=== PATIENT | female | born 1990 | race Caucasian/White ===

== ENCOUNTER → 2018-03-21 12:19 | Outpatient (CLI) | payer OTHER, MEDICAID, SELFPAY ==
[2018-03-21 12:36] LABS: RBC Urine None Seen (0-5/HPF)
[2018-03-21 13:14] LABS: Hematocrit 35.6 % (36-46); Hemoglobin 12.3 g/dL (12.0-16.0); Mean Corpuscular HGB Conc 34.6 % (30-36); Mean Corpuscular Hemoglobin 31.2 PG (26-34); Mean Corpuscular Volume 90.1 fL (80-100); Platelet Count 258 X10^3/uL (150-400); Red Blood Cell Count 3.95 X10^6/uL (4.0-5.2); Red Cell Distribution Width 12.8 % (11.6-14.8); White Blood Cell Count 5.7 X10^3/uL (4.5-11.0)
[2018-03-21 13:29] LABS: Appearance Urine UA CLEAR; Bilirubin Urine UA NEGATIVE (NEGATIVE); Color Urine UA YELLOW; Glucose Urine UA NEGATIVE (Negative); Ketones Urine UA NEGATIVE (NEGATIVE); Leukocyte Esterase Urine UA 1+ (NEGATIVE); Nitrite Urine UA NEGATIVE (Negative); Occult Blood Urine UA NEGATIVE (Negative); Protein Urine UA NEGATIVE (Negative); Urobilinogen Urine UA 0.2 E.U./dL (0.2); pH Urine UA 7.5 (4.5-8.0)
[2018-03-21 13:35] LABS: Bacteria Urine Moderate (10-30); Culture Indicated Urine Specimen Cultured; Squamous Epithelial Cell Urine 1-5 /HPF; WBC Urine 1-5/HPF (0-5/HPF)
[2018-03-21 15:00] LABS: Urine N gonorrhoeae NOT DETECTED
[2018-03-21 15:23] LABS: Urine Chlamydia NOT DETECTED
[2018-03-21 16:56] LABS: HIV 1 and 2 Antibody NEGATIVE (NEGATIVE); Hepatitis B Surface Antigen NEGATIVE s/c (NEGATIVE); Rubella Antibody IgG 19.1 IU/mL (>15)
[2018-03-25 22:29] LABS: RPR Screen Nonreactive (Nonreactive)
== END ==
PROVIDERS: PCP Nurse Practitioner Obstetrics & Gynecology; Visit Provider Nurse Practitioner Obstetrics & Gynecology
DX: Z34.01 Encounter for supervision of normal first pregnancy, first trimester (principal)
CPT/HCPCS: 36415; 81001; 85027; 86592; 86703; 86762; 86900; 86901; 87086; 87340; 87491; 87591

== ENCOUNTER → 2018-04-05 10:52 | Outpatient (CLI) | payer OTHER, MEDICAID, SELFPAY ==
--- NOTE | 2018-04-05 | DI.US.S_ITS ---
ULTRASOUND OF RIGHT BREAST: 04/05/2018 CLINICAL: RIGHT BREAST LUMP. No prior exams were available for comparison. Real-time ultrasound of the right breast was performed on the areas of interest. Sunshine scale images of the real-time examination were reviewed. IMPRESSION: NEGATIVE There is no sonographic evidence of malignancy. There is no sonographic abnormality seen in the right breast to correspond with the palpable abnormality, however, clinical followup is recommended. Return to annual mammogram screening schedule at 40 is recommended. This exam was interpreted at Station ID: [id number]. Electronically Signed By: Juanis lang/:04/05/2018 17:15:10 letter sent: Clinical Evaluation Ultrasound BI-RADS: 1 Negative
== END ==
PROVIDERS: PCP Nurse Practitioner Obstetrics & Gynecology; Visit Provider Nurse Practitioner Obstetrics & Gynecology
DX: N63.10 Unspecified lump in the right breast, unspecified quadrant (principal)
CPT/HCPCS: 76642

== ENCOUNTER → 2018-06-07 09:55 | Outpatient (CLI) | payer OTHER, MEDICAID, SELFPAY ==
--- NOTE | 2018-06-07 | DI.US.S_ITS ---
PROCEDURE: US OB >= 14 WEEKS FETUS INDICATIONS: ANATOMY SCAN OUTSIDE/PRIOR DATING DATA: Last menstrual period (LMP): 01/09/18. LMP-based estimated date of delivery (IESHA): 10/16/18. First dating scan (date and location): 06/07/18. Estimated date of delivery (IESHA) from first dating scan: 10/16/18. TECHNIQUE: Real-time scanning was performed of the fetus, with image documentation and biometric measurements. Endovaginal scanning: No COMPARISON: None. FINDINGS: General: A single living intrauterine gestation is present. Presentation: Transverse with the head to the maternal left.. Placenta: Placental position is anterior, without previa. Amniotic fluid index: 13.4 cm, normal range is 5-24 cm. heart rate: 133 beats per minute. Maternal cervical canal: 3.2 cm long. Normal lower limit is 2.5 cm. biometrics: Biparietal diameter: 21 weeks 1 day Head circumference: 21 weeks 2 days Abdominal circumference: 21 weeks 4 days Femur length: 21 weeks 1 day Estimated gestational age from initial scan: not applicable. Composite gestational age from present scan: 21 weeks 2 days Estimated weight and percentile: 416 g; 47 percentile based on LMP. Measurement variability for biometric dating: +/- 7 days from 14 weeks to 15 weeks 6 days gestation, +/- 10 days from 16 weeks to 21 weeks 6 days gestation, +/- 2 weeks from 22 weeks to 27 weeks 6 days gestation, +/- 3 weeks for 28 weeks gestation or later. weight reference: 4500 g or EFW >90/95% is considered macrosomia or large for gestational age. EFW <10% is small for gestational age. EFW 5% or less is considered intra-uterine growth restriction. Anatomic survey: Neuro: Ventricles are non-dilated at less than 10 mm. Cisterna magna is normal at 3-11 mm. Cerebellum is normal in size and morphology. Nuchal skin fold: Normal at less than 6 mm between 14-21 weeks gestational age. Face: Nose and lips, facial profile are normal. Spine: No evidence for spina bifida. Heart: heart suboccipital visualized and possibly a small VSD is noted by the dice dealer. Diaphragm: Diaphragm is intact. Stomach: Left-sided stomach is present. Kidneys: No hydronephrosis. Normal is less than 5 mm in 2nd trimester, less than 7 mm in 3rd trimester. Cord: 3-vessel cord has orthotopic insertion. Bladder: Normal in size. Extremities: All 4 extremities identified. IMPRESSION: 21 week 2 day single living IUP. heart not well visualized and VSD cannot be excluded on the basis of this examination. Short-term followup ultrasound is recommended. Dictated by: Giovanni FLORIAN Interpreted: Bridgette Mora MD on 06/07/2018 at 13:00 Approved by: Bridgette Mora M.D. on 06/07/2018 at 16:59
== END ==
PROVIDERS: PCP Nurse Practitioner Obstetrics & Gynecology; Visit Provider Nurse Practitioner Obstetrics & Gynecology
DX: Z36.89 Encounter for other specified antenatal screening (principal); Z3A.21 21 weeks gestation of pregnancy
CPT/HCPCS: 76811

== ENCOUNTER → 2018-07-18 07:45 | Outpatient (CLI) | payer OTHER, MEDICAID, SELFPAY ==
[2018-07-18 08:52] LABS: Hematocrit 32.7 % (36-46); Mean Corpuscular HGB Conc 33.7 % (30-36); Mean Corpuscular Hemoglobin 30.6 PG (26-34); Mean Corpuscular Volume 90.8 fL (80-100); Platelet Count 301 X10^3/uL (150-400); Red Blood Cell Count 3.61 X10^6/uL (4.0-5.2); White Blood Cell Count 7.2 X10^3/uL (4.5-11.0)
[2018-07-18 09:12] LABS: Glucose Fasting 67 mg/dL (70-100)
[2018-07-18 10:35] LABS: Glucose Tol Interpretation INTERPRETATION
[2018-07-18 10:50] LABS: Glucose 1 Hour 103 mg/dL (70-170)
[2018-07-18 11:31] LABS: Glucose 2 Hour 84 mg/dL (70-140)
== END ==
PROVIDERS: PCP Nurse Practitioner Obstetrics & Gynecology; Visit Provider Nurse Practitioner Obstetrics & Gynecology
DX: Z34.92 Encounter for supervision of normal pregnancy, unspecified, second trimester (principal); Z3A.24 24 weeks gestation of pregnancy
CPT/HCPCS: 36415; 82951; 82952; 85027; 86850

== ENCOUNTER → 2018-09-20 12:48 | Outpatient (ROUT) | payer OTHER, MEDICAID, SELFPAY | PROVIDERS: PCP Nurse Practitioner Obstetrics & Gynecology; Visit Provider Nurse Practitioner Obstetrics & Gynecology | DX: Z34.83 Encounter for supervision of other normal pregnancy, third trimester (principal) | CPT/HCPCS: 87081 ==

== ENCOUNTER 2018-10-15 07:30 | Observation (INO) | payer OTHER, MEDICAID, SELFPAY ==
--- NOTE | 2018-10-15 08:14 | PM.OBTRLD ---
[facility] Medical History (Updated 10/15/18 @ 08:19 by Judy Villa CNM) Anxiety, generalized (Acute) Depressive disorder (Acute) Former smoker (Acute) History of alcohol abuse (Acute) PROM (premature rupture of membranes) (Acute) Surgical History (Updated 10/15/18 @ 08:19 by Judy Villa CNM) Hx of knee surgery (Acute) Social History (Updated 10/15/18 @ 08:21 by Judy Villa CNM) marital status: unmarried,living together details: Partner Rui lives independently: Yes caregiver/support person: No housing: house pets and animals: Yes occupational status: employed current occupational exposures/hazards: No special neda needs: No Smoking Status: Former smoker alcohol intake: former substance use type: does not use during the past year weight has: other well-balanced diet: daily or most days daily servings fruits/ve or more times/day Type(s) of exercise: walking frequency: 3-4 times per week Social History (Updated 10/15/18 @ 08:21 by Judy Villa CNM) marital status: unmarried,living together details: Partner Rui lives independently: Yes caregiver/support person: No housing: house pets and animals: Yes occupational status: employed current occupational exposures/hazards: No special neda needs: No Smoking Status: Former smoker alcohol intake: former substance use type: does not use during the past year weight has: other well-balanced diet: daily or most days daily servings fruits/ve or more times/day Type(s) of exercise: walking frequency: 3-4 times per week Review of Systems Review of Systems All systems reviewed & are unremarkable except as noted in HPI and below Exam Vital Signs (past 8 hours): BP 116/84, HR 79, T 97.6F Narrative Exam Narrative: 28YO @ [id number] by LMP and early US presents for evaluation of PROM. Awoke to a gush of fluid at 0400 and has noted clear fluid intermittently leaking since. Feeling mild, irregular contractions. +FM. Has noted small spotting w/ mucus discharge. Uncomplicated PN care w/ CNM. Desires low intervention . FOB present and supportive. O: VSS. FHR baseline 140bpm, moderate varaibility, accels present, decels absent. Ctx Q 3.5-4 minutes, lasting 80-120 seconds, mild. CE deferred. Grossly ruptured, clear fluid noted on clothes and peripad. A: Term primipara PROM Reactive TREE MARKER Evaluation Evaluation Baseline heart rate: 140 Variability: Moderate (11-25) monitor accelerations: Present monitor decelerations: Absent Contraction Frequency (minutes): 3 Uterine Contraction Intensity: Mild Category of Tracing: I Diagnosis, Plan/Disposition Plan/Disposition Plan: Counseled patient on options for active vs expectant management of PROM. Pt declines intervention at this time, strongly desires no intervention. Reviewed labor sx, warning sx and when to call. Pt to return no later than 4pm for labor admission, pt verbalized agreement. OB Disposition: home
--- NOTE | 2018-10-15 08:21 | P.TNLD_ITS ---
[facility] Medical History (Updated 10/15/18 @ 08:19 by Judy Villa CNM) Anxiety, generalized (Acute) Depressive disorder (Acute) Former smoker (Acute) History of alcohol abuse (Acute) PROM (premature rupture of membranes) (Acute) Surgical History (Updated 10/15/18 @ 08:19 by Judy Villa CNM) Hx of knee surgery (Acute) Social History (Updated 10/15/18 @ 08:21 by Judy Villa CNM) marital status: unmarried,living together details: Partner Rui lives independently: Yes caregiver/support person: No housing: house pets and animals: Yes occupational status: employed current occupational exposures/hazards: No special neda needs: No Smoking Status: Former smoker alcohol intake: former substance use type: does not use during the past year weight has: other well-balanced diet: daily or most days daily servings fruits/ve or more times/day Type(s) of exercise: walking frequency: 3-4 times per week Social History (Updated 10/15/18 @ 08:21 by Judy Villa CNM) marital status: unmarried,living together details: Partner Rui lives independently: Yes caregiver/support person: No housing: house pets and animals: Yes occupational status: employed current occupational exposures/hazards: No special neda needs: No Smoking Status: Former smoker alcohol intake: former substance use type: does not use during the past year weight has: other well-balanced diet: daily or most days daily servings fruits/ve or more times/day Type(s) of exercise: walking frequency: 3-4 times per week Review of Systems Review of Systems All systems reviewed & are unremarkable except as noted in HPI and below Exam Vital Signs (past 8 hours): BP 116/84, HR 79, T 97.6F Narrative Exam Narrative: 28YO @ [id number] by LMP and early US presents for evaluation of PROM. Awoke to a gush of fluid at 0400 and has noted clear fluid intermittently leaking since. Feeling mild, irregular contractions. +FM. Has noted small spotting w/ mucus discharge. Uncomplicated PN care w/ CNM. Desires low intervention . FOB present and supportive. O: VSS. FHR baseline 140bpm, moderate varaibility, accels present, decels absent. Ctx Q 3.5-4 minutes, lasting 80-120 seconds, mild. CE deferred. Grossly ruptured, clear fluid noted on clothes and peripad. A: Term primipara PROM Reactive INFORMATION SECURITY ARCHITECT Evaluation Evaluation Baseline heart rate: 140 Variability: Moderate (11-25) monitor accelerations: Present monitor decelerations: Absent Contraction Frequency (minutes): 3 Uterine Contraction Intensity: Mild Category of Tracing: I Diagnosis, Plan/Disposition Plan/Disposition Plan: Counseled patient on options for active vs expectant management of PROM. Pt declines intervention at this time, strongly desires no intervention. Reviewed labor sx, warning sx and when to call. Pt to return no later than 4pm for labor admission, pt verbalized agreement. OB Disposition: home
== END 2018-10-15 08:20 | disposition home or self-care (01) ==
PROVIDERS: Admitting Provider Nurse Practitioner Obstetrics & Gynecology; PCP Nurse Practitioner Obstetrics & Gynecology; Visit Provider Nurse Practitioner Obstetrics & Gynecology
DX: O42.92 Full-term premature rupture of membranes, unspecified as to length of time between rupture and onset of labor (principal); Z3A.39 39 weeks gestation of pregnancy
CPT/HCPCS: 59025; G0378; G0379

== ENCOUNTER 2018-10-15 11:43 | Inpatient (IN) | payer OTHER, MEDICAID, SELFPAY ==
--- NOTE | 2018-10-15 12:21 | PM.OBHP.1 ---
OB HPI History of Present Condition Chief complaint: Evaluation for Labor Narrative: Doris Mcarthur is a 28 year old female, @ [id number] by LMP and 10 wk US, presents for admission s/p PROM, clear fluid at 0400. Ctx have slowly progressed in frequency and intensity since yesterday, now Q2-5 minutes, lasting at least a minute. Breathing through most contractions. Uncomplicated PN care w/ CNM. Desires low intervention . FOB, Rui, present and supportive. [facility] Medical History Anxiety, generalized (Acute) Depressive disorder (Acute) Former smoker (Acute) History of alcohol abuse (Acute) PROM (premature rupture of membranes) (Acute) Surgical History Hx of knee surgery (Acute) Social History (Updated 10/15/18 @ 08:21 by Judy Villa CNM) marital status: unmarried,living together details: Partner Rui lives independently: Yes caregiver/support person: No housing: house pets and animals: Yes occupational status: employed current occupational exposures/hazards: No special neda needs: No Smoking Status: Former smoker alcohol intake: former substance use type: does not use during the past year weight has: other well-balanced diet: daily or most days daily servings fruits/ve or more times/day Type(s) of exercise: walking frequency: 3-4 times per week Social History marital status: unmarried,living together details: Partner Rui lives independently: Yes caregiver/support person: No housing: house pets and animals: Yes occupational status: employed current occupational exposures/hazards: No special neda needs: No Smoking Status: Former smoker alcohol intake: former substance use type: does not use during the past year weight has: other well-balanced diet: daily or most days daily servings fruits/ve or more times/day Type(s) of exercise: walking frequency: 3-4 times per week Meds Home Medications Medication Instructions Recorded Confirmed Type ferrous sulfate 325 mg PO DAILY 10/15/18 10/15/18 History no.144-folic acid 2 tab PO DAILY 10/15/18 10/15/18 History [] Allergies Allergy/AdvReac Type Severity Reaction Status Date / Time diphenhydramine Allergy Intermediate throat Verified 10/15/18 12:28 swelling Review of Systems Review of Systems All systems reviewed & are unremarkable except as noted in HPI and below Exam Vital Signs (past 8 hours): VSS, see Obix flowsheet Narrative Exam Narrative: FHR baseline 130bpm, moderate variability, accels present, decels absent. Ctx Q 2-5minutes, lasting 80-120 seconds, moderate. CE deferred. Resp Effort & Inspection: normal respiratory effort Auscultation: clear to auscultation bilaterally Cardio Rate: regular rate Rhythm: regular rhythm Heart Sounds: S1 normal and S2 normal GI Palpation: soft Other: gravid, nontender Psych Appearance: grossly normal Mental Status: mental status grossly normal Speech and Movement: speech and movement normal Mood: congruent mood Affect: normal affect Attitude: cooperative Thought Process: normal Other: stable without medication Objective Labs Labs: ABO/Rh- A positive, AB screen-negative, HIV neg, GC/CT-neg/neg, HepBsAg-negative, Rubella-immune; 07/18/18: Hgb-11, Hct-32.7, Plt-301, 2hr gtt-WNL/67/103/84; 09/20/18: GBS-neg Assessment and Plan Assessment and Plan Assessment and Plan narrative: Term pirmipara SROM x8 hours without sx of infection Suspect active labor No indication for GBS prophylaxis Cat I FHR P: Admit w/ routine orders :SL IV, CBC, T&S. Labor support PRN. May switch to IA if patient desires. Reassess in 4 hours or sooner, PRN.
--- NOTE | 2018-10-15 12:32 | P.HPOB_ITS ---
OB HPI History of Present Condition Chief complaint: Evaluation for Labor Narrative: Doris Mcarthur is a 28 year old female, @ [id number] by LMP and 10 wk US, presents for admission s/p PROM, clear fluid at 0400. Ctx have slowly progressed in frequency and intensity since yesterday, now Q2-5 minutes, lasting at least a minute. Breathing through most contractions. Uncomplicated PN care w/ CNM. Desires low intervention . FOB, Rui, present and supportive. [facility] Medical History Anxiety, generalized (Acute) Depressive disorder (Acute) Former smoker (Acute) History of alcohol abuse (Acute) PROM (premature rupture of membranes) (Acute) Surgical History Hx of knee surgery (Acute) Social History (Updated 10/15/18 @ 08:21 by Judy Villa CNM) marital status: unmarried,living together details: Partner Rui lives independently: Yes caregiver/support person: No housing: house pets and animals: Yes occupational status: employed current occupational exposures/hazards: No special neda needs: No Smoking Status: Former smoker alcohol intake: former substance use type: does not use during the past year weight has: other well-balanced diet: daily or most days daily servings fruits/ve or more times/day Type(s) of exercise: walking frequency: 3-4 times per week Social History marital status: unmarried,living together details: Partner Rui lives independently: Yes caregiver/support person: No housing: house pets and animals: Yes occupational status: employed current occupational exposures/hazards: No special neda needs: No Smoking Status: Former smoker alcohol intake: former substance use type: does not use during the past year weight has: other well-balanced diet: daily or most days daily servings fruits/ve or more times/day Type(s) of exercise: walking frequency: 3-4 times per week Meds Home Medications Medication Instructions Recorded Confirmed Type ferrous sulfate 325 mg PO DAILY 10/15/18 10/15/18 History no.144-folic acid 2 tab PO DAILY 10/15/18 10/15/18 History [] Allergies Allergy/AdvReac Type Severity Reaction Status Date / Time diphenhydramine Allergy Intermediate throat Verified 10/15/18 12:28 swelling Review of Systems Review of Systems All systems reviewed & are unremarkable except as noted in HPI and below Exam Vital Signs (past 8 hours): VSS, see Obix flowsheet Narrative Exam Narrative: FHR baseline 130bpm, moderate variability, accels present, decels absent. Ctx Q 2-5minutes, lasting 80-120 seconds, moderate. CE deferred. Resp Effort & Inspection: normal respiratory effort Auscultation: clear to auscultation bilaterally Cardio Rate: regular rate Rhythm: regular rhythm Heart Sounds: S1 normal and S2 normal GI Palpation: soft Other: gravid, nontender Psych Appearance: grossly normal Mental Status: mental status grossly normal Speech and Movement: speech and movement normal Mood: congruent mood Affect: normal affect Attitude: cooperative Thought Process: normal Other: stable without medication Objective Labs Labs: ABO/Rh- A positive, AB screen-negative, HIV neg, GC/CT-neg/neg, HepBsAg- negative, Rubella-immune; 07/18/18: Hgb-11, Hct-32.7, Plt-301, 2hr gtt- WNL/67/103/84; 09/20/18: GBS-neg Assessment and Plan Assessment and Plan Assessment and Plan narrative: Term pirmipara SROM x8 hours without sx of infection Suspect active labor No indication for GBS prophylaxis Cat I FHR P: Admit w/ routine orders :SL IV, CBC, T&S. Labor support PRN. May switch to IA if patient desires. Reassess in 4 hours or sooner, PRN.
[2018-10-15 13:05] LABS: Add Manual Diff / Slide Review NO; Basophils Absolute Auto 100 /uL (0-100); Basophils Percent Auto 0.8 % (0-2); Eosinophils Absolute Auto 0 /uL (0-450); Eosinophils Percent Auto 0.5 % (2-4); Hematocrit 32.4 % (36-46); Hemoglobin 11.1 g/dL (12.0-16.0); Lymphocytes Absolute Auto 1800 /uL (1100-4500); Lymphocytes Percent Auto 19.6 % (25-40); Mean Corpuscular HGB Conc 34.2 % (30-36); Mean Corpuscular Hemoglobin 29.6 PG (26-34); Mean Corpuscular Volume 86.6 fL (80-100); Monocytes Absolute Auto 1000 /uL (0-900); Monocytes Percent Auto 10.7 % (3-14); Neutrophils Absolute Auto 6400 /uL (1500-7000); Neutrophils Percent Auto 68.4 % (50-75); Platelet Count 271 X10^3/uL (150-400); Red Blood Cell Count 3.75 X10^6/uL (4.0-5.2); Red Cell Distribution Width 13.8 % (11.6-14.8); White Blood Cell Count 9.3 X10^3/uL (4.5-11.0)
--- NOTE | 2018-10-15 16:18 | PM.OBPNLAB ---
Date/Time Date Patient Seen: 10/15/18 Time Patient Seen: 16:19 Pain Control Pain control: tolerating well Comments: coping well with continuous support Pelvic Exam Dilation (cm): 7 Effacement (%): 90 station: 0 Amniotic membrane status: Leaking Comments: clear Contractions Date/Time contractions began: 829 Contractions on admission: regular Monitor mode: External Contraction frequency (min): 4 Contraction duration (min): 100 Contraction pattern: Regular Contraction phase: Contraction Contraction intensity: Strong/Firm Status status: Category l Heart Rate Baseline: 125 Monitor Accelerations: Present Monitor Decelerations: Absent Monitor Variability: Moderate Assessment and Plan Assessment: active labor Plan: continuous present management
[2018-10-15] MEDS: fentaNYL 100 MCG/2 ML INJ IV (18:56)
[2018-10-15] MEDS: LACTATED RINGERS 1,000 ML 100 ML IV (18:56)
--- NOTE | 2018-10-15 19:04 | PM.OBPNLAB ---
Pelvic Exam Dilation (cm): 7 Effacement (%): 90 station: 0 Amniotic membrane status: Leaking Contractions Monitor mode: External Contraction frequency (min): 4 Contraction pattern: Regular Contraction phase: Contraction Contraction intensity: Strong/Firm Status status: Category l
--- NOTE | 2018-10-15 19:05 | PM.OBPNLAB ---
Date/Time Date Patient Seen: 10/15/18 Time Patient Seen: 19:07 Pain Control Pain control: narcotic analgesia Comments: Not coping well with minimal cervical change since last exam. IV Fentanyl given, per pt request, and pt now resting more comfortably. Pelvic Exam Dilation (cm): 8 Effacement (%): 90 station: 0 Amniotic membrane status: Leaking Contractions Monitor mode: External Contraction frequency (min): 4 Contraction duration (min): 100 Contraction pattern: Regular Contraction phase: Contraction Contraction intensity: Strong/Firm Status status: Category l Heart Rate Baseline: 125 Monitor Accelerations: Present Monitor Decelerations: Variable Monitor Variability: Moderate Assessment and Plan Assessment: active labor Plan: continuous present management Comments: Recheck inn 2 hours and will recommend labor augmentation if no change at that time.
--- NOTE | 2018-10-15 20:44 | PM.OBPRVD ---
Events: Premature Rupture of Membrane (Delivered w/in 24 hours) Delivery date: 10/15/18 Intrapartal events: None Cervical ripening method: none Induction method: none Delivery monitor: external FHT and external uterine Route of delivery: Episiotomy description: None L&D Laceration Description: None and Superficial Estimated blood loss (mL): 300 Anesthesia type: Other (Fentanyl 100mcg IV) Complications: none Narrative: Pt received minimal relief w/ IV Fentanyl, complained of strengthening contractions and then spontaneous urge to push w/ Cat II FHTs for variable decelerations. Maternal efforts with coaching and encouragement led to NSVB of a vigorous baby boy over an intact perineum at 1954 after a 26 minute second stage. There was no NC and the shoulders delivered without additional maneuvers. was placed on maternal abdomen by CNM and FOB for drying and skin to skin. 30 units of pitocin in 500mL LR was started at 300mL/hr for active management of the third stage of labor. After cessation of pulsation, the cord was double clamped by CNM and cut by FOB. Cord blood sample was collected to hold. Gentle cord traction and maternal pushes led to a spontaneous Schultze delivery of an apparently intact placenta, membranes and 3VC. Fundus was immediately firm and bleeding minimal. Inspection revealed bilateral superficial splits of the internal labia minora that were hemostatic w/ no indication for repair. QBL 300mL. Both mother and baby stable and [id number] as I left the room. Mar[place] Baby 1: Infant gender: Male Presentation: vertex position: Right Occiput Anterior Placenta delivery description: Spontaneous cord vessel description: 3 Vessels score (1 min): 9 score (5 min): 9 Plan for aftercare: Routine PP orders. Anticipate discharge to home in 18-24 hours.
[2018-10-15] MEDS: KETOROLAC 30 MG/ML VIAL IV (21:53)
[2018-10-15] MEDS: DERMOPLAST SPRAY 20% 60 ML 1 SPRAY TOP (21:54)
[2018-10-16] MEDS: DOCUSATE 250 MG CAPSULE PO (09:53)
[2018-10-16] MEDS: IBUPROFEN 600 MG TABLET PO (09:54)
[2018-10-16 15:37] VITALS: BP 118/74
--- NOTE | 2018-10-16 17:53 | P.DS_ITS ---
Discharge Providers Date of admission: 10/15/18 11:43 Discharge Date: 10/16/18 Primary care physician: Judy Villa CNM Consults: 10/15/18 20:40 Consult to [employer] Routine Comment: 10/15/18 21:32 Consult to [employer] Routine Comment: Discharge provider: Judy Villa CNM Summary Date Patient Seen: 10/16/18 Time Patient Seen: 16:00 Procedures: Pt sitting up in bed, nursing her son. Feeling well and eager for discharge to home. Has been voiding and ambulating independently. Tolerating general diet. Pain well controlled w/ PO medication. Has not had a BM. Lochia is decreasing. Routine PP care has been given and patient is recovering well from a spontaneous vaginal . Peripartum Data Delivery Method: Natural Vaginal Laceration description: Superficial complications: none [place] 1: Gender: Male Disposition of : home Status at Discharge Cognitive/behavioral status at discharge: oriented Functional status at discharge: independent ambulation Overall status at discharge: patient is progressing back to baseline Time Spent with Patient Total time spent providing and/or coordinating discharge services: Greater than 30 minutes Objective Labs Result Diagrams: 10/15/18 13:00 Exam Vital Signs (past 8 hours): - 10/16/18 15:37 Blood Pressure 118/74 Narrative Exam Narrative: Breasts and nipples non-tender, without redness FF@U-1, lochia light, perineum intact Discharge Plan Discharge Plan Patient Disposition: Home Discharge Med Rec/Prescriptions Prescriptions: New acetaminophen 325 mg Tablet 650 mg PO Q6HR PRN (Reason: Pain, Mild (1-3)) 14 Days Qty: 100 RF: 0 ibuprofen 600 mg Tablet 600 mg PO Q6HR PRN (Reason: Pain, Mild (1-3)) 14 Days Qty: 42 RF: 0 docusate sodium 250 mg Capsule 250 mg PO DAILY 14 Days Qty: 20 RF: 0 Continued ferrous sulfate 325 mg (65 mg iron) Tablet 325 mg PO DAILY RF: 0 400 mcg Tablet,Chewable 2 tab PO DAILY RF: 0 Follow up/Referrals: Judy Villa CNM [Primary Care Provider] - Provider Discharge Instructions Diet: Diet as Tolerated Skin/Wound/Dressing Care Report to your healthcare provider any signs of infection, such as:: chills, fever and increased pain Visit Report/Discharge Packet Instructions: DI for Depression Discharge Data Primary Care Provider: Judy Villa Attending Provider: Judy Villa Admit Date/Time: 10/15/18 11:43
== END 2018-10-16 19:50 | disposition home or self-care (01) | DRG 560 ==
PROVIDERS: Admitting Provider Nurse Practitioner Obstetrics & Gynecology; PCP Nurse Practitioner Obstetrics & Gynecology; Visit Provider Nurse Practitioner Obstetrics & Gynecology
DX: O42.02 Full-term premature rupture of membranes, onset of labor within 24 hours of rupture (principal); Z3A.39 39 weeks gestation of pregnancy; Z37.0 Single live birth; O70.0 First degree perineal laceration during delivery
CPT/HCPCS: 59025; 59050; 85025; 86850; 86900; 86901; G0378; G0379; J1885; J3010